=== PATIENT | male | born 1960 | race American Indian/Alaskan Native ===

== ENCOUNTER 2022-01-03 09:01 | Outpatient (CLI) | payer OTHER ==
--- NOTE | 2022-01-03 10:30 | XRay Report ---
BILATERAL KNEE 6 VIEW(S) INDICATION / CLINICAL INFORMATION: BILATERAL KNEE PAIN COMPARISON: None available. FINDINGS: BONES / JOINT(S): No acute fracture or subluxation. Moderate joint space narrowing of the bilateral m edial compartments and otherwise mild tricompartmental degenerative osteoarthritis. Right-sided bipar tite patella with osseous fragments along the superolateral accessory center of ossification. SOFT TISSUES: No significant abnormality. ADDITIONAL FINDINGS: None. IMPRESSION: 1. No acute findings. 2. Mild/moderate bilateral tricompartmental degenerative osteoarthritis, most prominent medially. 3. Right-sided bipartite patella. Signer Name: Eladio Lozano MD Signed: 01/03/2022 10:26 AM Workstation Name: [id number]
--- NOTE | 2022-01-03 10:31 | XRay Report ---
LEFT SHOULDER 3 VIEW(S) INDICATION / CLINICAL INFORMATION: LEFT SHOULDER PAIN. COMPARISON: None available. FINDINGS: BONES / JOINT(S): No acute fracture or subluxation. Mild AC joint degenerative osteoarthritis. SOFT TISSUES: No significant abnormality. ADDITIONAL FINDINGS: None. IMPRESSION: 1. No acute findings. Signer Name: Eladio Lozano MD Signed: 01/03/2022 10:26 AM Workstation Name: [id number]
--- NOTE | 2022-01-03 10:32 | XRay Report ---
RIGHT HIP 2 VIEW(S) INDICATION / CLINICAL INFORMATION: HIP REPLACEMENT COMPARISON: None available. FINDINGS: BONES / JOINT(S): No acute fracture or subluxation. Mild right hip degenerative osteoarthritis with m ild joint space narrowing and small acetabular marginal osteophyte. Intact left total hip arthroplast y without periprosthetic fracture. 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 SOFT TISSUES: No significant abnormality. ADDITIONAL FINDINGS: None. IMPRESSION: 1. Mild right hip degenerative osteoarthritis without fracture or other acute process. Signer Name: Eladio Lozano MD Signed: 01/03/2022 10:27 AM Workstation Name: [id number]
== END 2022-01-03 09:02 | disposition home or self-care (01) ==
LOC: XRAY 09:01
PROVIDERS: ATTEND Internal Medicine
DX: M25.751 Osteophyte, right hip (principal); M19.012 Primary osteoarthritis, left shoulder; M17.0 Bilateral primary osteoarthritis of knee; M16.11 Unilateral primary osteoarthritis, right hip; Q74.1 Congenital malformation of knee; Z96.642 Presence of left artificial hip joint